=== PATIENT | male | born 1990 | race Hispanic/Latino ===

== ENCOUNTER 2022-12-31 12:06 | Emergency (ER) | payer OTHER ==
[~2022-12-31] VITALS: Ht 165.1 cm; Wt 63.5 kg
[2022-12-31] MEDS ORDERED: KETOROLAC 15MG/ML VIAL (15MG/ML) ONE (12:29)
[2022-12-31] MEDS ORDERED: CYCLOBENZAPRINE HCL 10 MG TABLET ONE (12:34)
[2022-12-31] MEDS ORDERED: LIDOCAINE 5% TOPICAL PATCH TP ONE ×2 (12:34→13:00)
[2022-12-31 12:57] LABS: APPEARANCE,URINE CLEAR (CLEAR); BILIRUBIN,URINE NEGATIVE (NEGATIVE); COLOR,URINE YELLOW (YELLOW); GLUCOSE, URINE (UA) 30 mg/dL (NEGATIVE); KETONES,URINE NEGATIVE (NEGATIVE); LEUKOCYTE ESTERASE ,URINE NEGATIVE Leu/uL (NEGATIVE); NITRATE,URINE NEGATIVE (NEGATIVE); OCCULT BLOOD,URINE MODERATE (NEGATIVE); PH,URINE 5.5 (5.0-8.0); PROTEIN,URINE 50 mg/dL (NEGATIVE); UROBILINOGEN,URINE 0.2 mg/dL (0.2-1.0)
[2022-12-31] MEDS ORDERED: CYCLOBENZAPRINE HCL 10 MG TABLET PO ONE (13:00)
[2022-12-31] MEDS ORDERED: KETOROLAC 15MG/ML VIAL (15MG/ML) IM ONE (13:00)
[2022-12-31] MEDS ORDERED: LIDO1ADH82 TP (13:10)
[2022-12-31] MEDS ORDERED: CYCL5TAB PO (13:10)
[2022-12-31] MEDS ORDERED: KETO10TA2 PO (13:10)
[2022-12-31 13:21] LABS: BACTERIA,URINE RARE /HPF (None Seen); MUCUS,URINE RARE LPF (None Seen); SQUAMOUS EPITHELIAL CELL,UR RARE /HPF (0-2)
[2022-12-31 13:23] VITALS: BP 125/68
== END 2022-12-31 13:24 | disposition home or self-care (01) ==
LOC: EDH 12:06
DX: M62.830 Muscle spasm of back (principal)
CPT/HCPCS: 99284; 71045; 81001; 96372; J1885